=== PATIENT | female | born 1965 | race Caucasian/White ===

== ENCOUNTER → 2022-08-18 | Outpatient (CLI) | payer BC ==
[2022-08-18 13:21] VITALS: BP 129/94; PULSE 88; TEMP 98.5; BMI 36.8
--- NOTE | 2022-08-26 10:43 | P.HPBAR ---
Bariatric H&P - History & Physicial H&P Date: 08/26/22 History & Physicial: Visit/CC: lap band Patient initial contact: Initial weight: Initial weight in pounds: Height: 5 ft 7 in Initial BMI: Last weight: Current weight: 106.594 kg Current weight in pounds: 235.00 Current BMI: 36.8 [place] body weight (based on NIH guidelines): 61.235 kg Excess body weight loss: The patient is a 56 year-old F who presents for Bariatric Assessment. Patient presents today for LAP-BAND follow-up. Patient's current weight is 235 pounds. Patient is issues with GERD and dysphagia once her band is adjusted. She is requesting removal of LAP-BAND. The patient is unsure if she wishes undergo sle devan gastrectomy. Past Medical History Past Medical History: GERD/Reflux History of Any Multi-Drug Resistant Organisms: None Reported Past Surgical History: Appendectomy, Bariatric Surgery, Cholecystectomy, Orthopedic Surgery, Tonsillectomy Additional Past Surgical History / Comment(s): lap band 2003, steph rotater cuff repair Past Anesthesia/Blood Transfusion Reactions: Motion Sickness, Postoperative Nausea & Vomiting (PONV) Past Psychological History: Depression Smoking Status: Never smoker Past Alcohol Use History: None Reported Past Drug Use History: None Reported Surgical - Exam Vital Signs Temp Pulse BP 98.5 F 88 129/94 08/18/22 13:17 08/18/22 13:17 08/18/22 13:17 - General well developed, well nourished, no distress - Eyes PERRL - ENT normal pinna - Neck no masses - Respiratory normal expansion - Cardiovascular Rhythm: regular - Abdomen Abdomen: soft, non tender Bariatric Assessment & Plan Plan: The patient will be scheduled have her LAP-BAND removed. The patient is issues with chronic dysphagia and GERD related to her band. Bariatric Checklist Checklist: Plan: Checklist: EGD: 1. Hiatal hernia: 2. H. Pylori: HgbA1c: Vitamin D: Smoking: Primary care physician referral: Dr. Connolly/YANIV Yates Psychiatry clearance: Cardiology clearance: Sleep study: Diet journal: VTE risk score: VTE risk level: Rehab needs at discharge:
== END ==
LOC: BARWHC3 13:03
PROVIDERS: ATTEND Surgery
DX: E66.01 Morbid (severe) obesity due to excess calories (principal); K21.9 Gastro-esophageal reflux disease without esophagitis; Z68.36 Body mass index [BMI] 36.0-36.9, adult; Z46.51 Encounter for fitting and adjustment of gastric lap band
CPT/HCPCS: 99211

== ENCOUNTER → 2022-09-05 | Outpatient (CLI) | payer BC ==
[2022-09-05 14:52] LABS: Basophils # (A) 0.04 X 10*3/uL (0.00-0.10); Basophils % (A) 0.9 %; Eosinophils # (A) 0.13 X 10*3/uL (0.04-0.35); HCT 45.8 % (37.2-46.3); HGB 15.2 g/dL (12.0-15.0); Immature Grans, Automated 0.2 %; Lymphocytes # (A) 1.46 X 10*3/uL (0.90-5.00); Lymphocytes % (A) 34.1 %; MCH 28.1 pg (27.0-32.0); MCHC 33.2 g/dL (32.0-37.0); MCV 84.7 fL (80.0-97.0); Mean Platelet Volume 10.8 fL (9.5-12.2); Monocytes # (A) 0.29 X 10*3/uL (0.20-1.00); Monocytes % (A) 6.8 %; NRBC Per 100 WBC 0 /100 WBCS (0.0-0.0); Neutrophils # (A) 2.35 X 10*3/uL (1.80-7.70); Platelet Count 243 X 10*3/uL (140-440); RBC 5.41 X 10*6/uL (4.10-5.20); RDW 12.6 % (11.5-14.5); WBC 4.28 X 10*3/uL (4.50-10.00)
[2022-09-05 15:09] LABS: African American GFR (CKD) 84.2 (60.0-200.0); Albumin 4.3 g/dL (3.8-4.9); Albumin/Globulin Ratio 1.59 (1.60-3.17); Anion Gap 8.2 mmol/L (10.00-18.00); BUN/Creat Ratio 16.82 Ratio (12.00-20.00); Blood Urea Nitrogen 15.1 mg/dL (9.0-27.0); Calcium 9.9 mg/dL (8.7-10.3); Carbon Dioxide 30.5 mmol/L (20.0-27.5); Globulin 2.7 g/dL (1.6-3.3); Non-African American GFR(CKD) 72.7 (60.0-200.0); Potassium 4.7 mmol/L (3.5-5.5); Total Bilirubin 0.3 mg/dL (0.30-1.20); Total Protein 6.9 g/dL (6.2-8.2)
== END | disposition home or self-care (01) ==
LOC: LABPAT 08:44
PROVIDERS: ATTEND Surgery
DX: Z01.812 Encounter for preprocedural laboratory examination (principal)
CPT/HCPCS: 80053; 85025; 93005

== ENCOUNTER 2022-09-15 06:26 | Day surgery (SDC) | payer BC ==
[~2022-09-15 06:26] MED LIST: DEXAMETHASONE SOD PHOSPHATE 4 MG/ML 1 ML VIAL IV ONE; LACTATED RINGERS 1,000 ML IV SCH; LIDOCAINE 1% (10MG/ML) FOR IV START INTRADERMA PRN; ONDANSETRON 4 MG/2 ML VIAL IVP ONE; SCOPOLAMINE 1 MG/72 HR PATCH TRANSDERM ONE; fentaNYL (PF) 50 MCG/ML 2 ML AMP IV PRN
[2022-09-15] MEDS ORDERED: HEPARIN SODIUM,PORCINE/PF 5,000 UNIT/0.5 ML SYRINGE SQ ONE (07:35)
--- NOTE | 2022-09-15 07:44 | P.GSHP ---
History of Present Illness H&P Date: 09/15/22 Chief Complaint: Dysphagia related to LAP-BAND This is a 56-year-old female presents today for LAP-BAND removal. Patient has had chronic issues with dysphagia related to her LAP-BAND. Past Medical History Past Medical History: GERD/Reflux, Osteoarthritis (OA) Additional Past Medical History / Comment(s): Vomiting. History of Any Multi-Drug Resistant Organisms: None Reported Past Surgical History: Appendectomy, Bariatric Surgery, Cholecystectomy, Orthopedic Surgery, Tonsillectomy Additional Past Surgical History / Comment(s): lap band 2003, steph rotater cuff repair Past Anesthesia/Blood Transfusion Reactions: Motion Sickness, Postoperative Nausea & Vomiting (PONV) Additional Past Anesthesia/Blood Transfusion Reaction / Comment(s): Pt has never received blood. Smoking Status: Never smoker - Past Family History Mother Family Medical History: Eye Disorder, Hyperlipidemia, Hypertension, Thyroid Disorder Additional Family Medical History / Comment(s): Macular degeneration/glaucoma Father Family Medical History: Diabetes Mellitus, Eye Disorder, Hyperlipidemia, Hypertension, Prostate Disorder Additional Family Medical History / Comment(s): Macular degeneration/glaucoma Medications and Allergies Home Medications Medication Instructions Recorded Confirmed Type Omeprazole 20 mg PO HS 08/18/22 09/15/22 History PARoxetine HCL [Paxil Cr] 25 mg PO QAM 08/18/22 09/15/22 History Allergies Allergy/AdvReac Type Severity Reaction Status Date / Time codeine Allergy stomach Verified 09/15/22 07:15 pain Surgical - Exam Vital Signs Temp Pulse Resp BP Pulse Ox 97.5 F L 79 18 127/84 95 09/15/22 07:17 09/15/22 07:17 09/15/22 07:17 09/15/22 07:17 09/15/22 07:17 - General well developed, well nourished, no distress - Eyes PERRL - ENT normal pinna - Neck no masses - Respiratory normal expansion - Cardiovascular Rhythm: regular - Abdomen Abdomen: soft, non tender Assessment and Plan Assessment: Dysphagia with LAP-BAND. We'll perform removal of LAP-BAND system.
[2022-09-15] MEDS ORDERED: fentaNYL (PF) 50 MCG/ML 2 ML AMP ONE (07:49)
[2022-09-15] MEDS ORDERED: NEOSTIGMINE 1 MG/ML 10 ML VIAL ONE (07:49)
[2022-09-15] MEDS ORDERED: SUCCINYLCHOLINE CHLORIDE 200 MG/10 ML VIAL IV ONE (07:49)
[2022-09-15] MEDS ORDERED: GLYCOPYRROLATE 0.2 MG/ML 2 ML VIAL ONE (07:49)
[2022-09-15] MEDS ORDERED: KETOROLAC 15 MG/ML 1 ML VIAL ONE (07:49)
[2022-09-15] MEDS ORDERED: ROCURONIUM 10 MG/ML (5 ML VIAL) IV ONE (07:49)
[2022-09-15] MEDS ORDERED: MIDAZOLAM 2 MG/2 ML VIAL ONE (07:49)
[2022-09-15] MEDS ORDERED: PROPOFOL 10 MG/ML 20 ML VIAL IV ONE (07:49)
[2022-09-15] MEDS ORDERED: BUPIVACAIN-EPI 0.25%-1:200,000 30 ML VIAL SQ ONE ×2 (08:15)
[2022-09-15 08:51] VITALS: TEMP 96.9
--- NOTE | 2022-09-15 08:56 | P.OP ---
Date of Procedure: 09/15/22 Preoperative Diagnosis: Dysphagia Postoperative Diagnosis: Dysphagia Procedure(s) Performed: Laparoscopic removal of LAP-BAND system Anesthesia: ASHLEIGH Surgeon: Sorin Foster Estimated Blood Loss (ml): 5 Pathology: none sent Condition: stable Disposition: PACU Description of Procedure: The patient's placed on the operative table in the dorsal 5 position her she received general anesthesia. Her abdomen was prepped and draped in usual sterile fashion. The skin incision sites were anesthetized 1% local Xylocaine. Using a 15 blade the skin was incised over the LAP-BAND port then using blunt sharp dissection with cautery the LAP-BAND port was then dissected free. The PEG tube was then cut. And then using a 5 mm optical trocar under direct vision the. Cavity is entered. Upon entering the pleural cavity the abdomen was insufflated. And then after adequate insufflation the 5 mL was placed. Cavity. Next another 5 mm trocar was placed in the right upper quadrant, left lateral and right lateral position. And then the original 5 mm trocar was exchanged for a 15 mm trocar. The left lateral lobe liver was retracted. The adhesive bands around the LAP-BAND device were lysed using cautery. Ana M device then cut and withdrawn from around stomach. There is no injury of the stomach or esophagus. The LAP-BAND device is brought up through the 15 mm trocar site. And then the trochars withdrawn. Skin was closed interrupted 3-0 Monocryl suture. Dermabond dressings was applied. Top she will was sent to recovery room in stable condition.
[2022-09-15] MEDS: LACTATED RINGERS 1,000 ML IV ONE ×2 (09:23→09:47)
[2022-09-15 09:39] VITALS: RESP 16
[2022-09-15 10:04] VITALS: BP 136/84; PULSE 74
== END 2022-09-15 10:23 | disposition home or self-care (01) ==
LOC: OR 06:26
PROVIDERS: ATTEND Surgery
DX: R13.10 Dysphagia, unspecified (principal); K21.9 Gastro-esophageal reflux disease without esophagitis; M19.90 Unspecified osteoarthritis, unspecified site; K91.0 Vomiting following gastrointestinal surgery; Z90.49 Acquired absence of other specified parts of digestive tract; Z98.84 Bariatric surgery status; Z90.89 Acquired absence of other organs; Z98.890 Other specified postprocedural states; Z82.49 Family history of ischemic heart disease and other diseases of the circulatory system; Z83.49 Family history of other endocrine, nutritional and metabolic diseases; Z83.3 Family history of diabetes mellitus; Z79.899 Other long term (current) drug therapy; Z88.5 Allergy status to narcotic agent; T75.3XXD Motion sickness, subsequent encounter
CPT/HCPCS: 43774; J2250; J0330; J1100; J2710; J0690; J2405; J3010; J1885; J2704; J1644

== ENCOUNTER → 2022-09-22 | Outpatient (CLI) | payer BC ==
[2022-09-22 15:08] VITALS: BP 137/85; PULSE 98; TEMP 98.3; BMI 37.7
--- NOTE | 2022-09-22 15:45 | P.HPBAR ---
Bariatric H&P - History & Physicial H&P Date: 09/22/22 History & Physicial: Visit/CC: lap band removal F/U Patient initial contact: Initial weight: Initial weight in pounds: Height: 5 ft 7 in Initial BMI: Last weight: Current weight: 109.316 kg Current weight in pounds: 241.00 Current BMI: 37.7 [place] body weight (based on NIH guidelines): 61.235 kg Excess body weight loss: The patient is a 56 year-old F who presents for Bariatric Assessment. Patient resents today for follow-up. She had her LAP-BAND removed last week. She's had some complaints of incisional pain at her port site. She is a small amount of bruising at that site. Past Medical History Past Medical History: GERD/Reflux History of Any Multi-Drug Resistant Organisms: None Reported Past Surgical History: Appendectomy, Bariatric Surgery, Cholecystectomy, Orthopedic Surgery, Tonsillectomy Additional Past Surgical History / Comment(s): lap band 2002, steph rotater cuff repair, lap band removed September 2022 Past Anesthesia/Blood Transfusion Reactions: Motion Sickness, Postoperative Nausea & Vomiting (PONV) Past Psychological History: Depression Smoking Status: Never smoker Past Alcohol Use History: None Reported Past Drug Use History: None Reported Surgical - Exam Vital Signs Temp Pulse BP 98.3 F 98 137/85 09/22/22 15:03 09/22/22 15:03 09/22/22 15:03 - General well developed, well nourished, no distress - Eyes PERRL - Neck no masses - Respiratory normal expansion - Cardiovascular Rhythm: regular - Abdomen Incision site is clean dry intact Abdomen: soft, non tender Bariatric Assessment & Plan Plan: Patient doing well status post removal LAP-BAND. She'll follow-up in 4 weeks. Bariatric Checklist Checklist: Plan: Checklist: EGD: 1. Hiatal hernia: 2. H. Pylori: HgbA1c: Vitamin D: Smoking: Primary care physician referral: Dr. Connolly/YANIV Yates Psychiatry clearance: Cardiology clearance: Sleep study: Diet journal: VTE risk score: VTE risk level: Rehab needs at discharge:
== END ==
LOC: BARWHC3 14:09
PROVIDERS: ATTEND Surgery
DX: E66.01 Morbid (severe) obesity due to excess calories (principal); K21.9 Gastro-esophageal reflux disease without esophagitis; Z46.51 Encounter for fitting and adjustment of gastric lap band; Z68.37 Body mass index [BMI] 37.0-37.9, adult; Z88.5 Allergy status to narcotic agent
CPT/HCPCS: 99211